=== PATIENT | male | born 1935 | race Caucasian/White ===

== ENCOUNTER 2016-09-16 08:14 | Emergency (ER) | payer OTHER, MEDICARE ==
[~2016-09-16] VITALS: Ht 177.8 cm; Wt 99.8 kg
[2016-09-16] MEDS ORDERED: ATENOLOL50 M1 PO (08:44)
[2016-09-16] MEDS ORDERED: OMEPRAZOLE40 M1 PO (08:44)
[2016-09-16] MEDS ORDERED: ATORVASTATIN CA20 M1 PO (08:44)
--- NOTE | 2016-09-16 09:13 | ED GI/GU/ABDOMINAL COMPLAINT ---
History of Present Illness General Chief Complaint: Male Genitourinary Problems Stated Complaint: BLOOD IN URINE Source: patient, old records Exam Limitations: no limitations Vital Signs & Intake/Output Vital Signs & Intake/Output Vital Signs Date Time Temp Pulse Resp B/P Pulse O2 O2 Flow FiO2 Ox Delivery Rate 09/16 0819 97.1 88 20 149/89 97 Allergies Coded Allergies: No Known Allergies (09/16/16) Reconcile Medications Atenolol 50 MG TABLET 1 TAB PO DAILY HTN (Reported) Atorvastatin Calcium 20 MG TABLET 1 TAB PO DAILY CHOLESTEROL (Reported) Omeprazole 40 MG CAPSULE.DR 1 CAP PO DAILY GERD (Reported) Triage Note: PT C/O BLOOD IN URINE SINCE YESTERDAY. STATES AT FIRST IT WAS LIGHT BUT TODAY IT WAS ALL BLOOD. PT DENIES PAIN OR BURNING WITH URINATION Triage Nurses Notes Reviewed? yes HPI: Patient presents for evaluation of blood in the urine. Patient states that the bleeding began gradually over the past 2-3 days. Urine is getting gradually darker in color. Although patient fell 2 days ago he states the hematuria began prior. No prior episodes. Patient denies any atypical urinary frequency hesitancy or dysuria. Patient's hematuria occurs with each avoiding episode and there appears to be no pattern of the hematuria. Last bowel movement yesterday without signs of bleeding. Patient states he has had subjective fevers and night sweats for about a year. Patient denies cold symptoms, lightheadedness/ dizziness or other associated symptoms. Patient has a history of prostate CA receiving radiation treatment 3 years ago. The patient has a distant history of severe cigarette smoking. Past History Travel History Traveled to [place] past 21 day No Medical History Any Pertinent Medical History? 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 No Review of Systems Review of Systems Constitutional: Reports: no symptoms. EENTM: Reports: no symptoms. Respiratory: Reports: no symptoms. Cardiovascular: Reports: no symptoms. GI: Reports: no symptoms. Genitourinary: Reports: see HPI. Musculoskeletal: Reports: no symptoms. Skin: Reports: no symptoms. Neurological/Psychological: Reports: no symptoms. Hematologic/Endocrine: Reports: no symptoms. Immunologic/Allergic: Reports: no symptoms. All Other Systems: Reviewed and Negative Physical Exam Physical Exam Gastrointestinal: normal bowel sounds (SEE BELOW), SEE BELOW Comments: Gen.: Well-nourished, well-developed, no acute respiratory distress. Head: Normocephalic, atraumatic. Eyes: Normal inspection bilaterally Ears: Normal inspection bilaterally Nose: Normal inspection Throat/mouth : Moist mucosa Neck: Supple, full range of motion, no goiter Heart: Regular rate and rhythm, no murmurs rubs or gallops Lungs: Clear to auscultation bilaterally with normal air entry Chest: Nontender Back: Normal range of motion Abdomen: Soft, mild right sided abdominal tenderness, greatest over the right upper quadrant, nondistended, normal bowel sounds, no guarding or rebound Extremities: Normal range of motion grossly, equal radial pulses, no cyanosis clubbing or edema Neurologic: Cranial nerves grossly intact, speech is clear Skin: warm and dry Psychiatric: Calm, cooperative, no apparent delusions or hallucinations Rectal: Nontender mildly boggy prostate, reddish, heme positive stool Core Measures ACS in differential dx? No Severe Sepsis Present: No Septic Shock Present: No Progress Differential Diagnosis: UTI/pyelo, BLADDER CANCER, PROSTATE CANCER, HYPERBILIRUBINEMIA, RHABDOMYOLYSIS, gi BLEED Plan of Care: Orders Procedure Date/time Status COMPREHENSIVE METABOLIC PANEL 09/16 0920 Complete CREATINE PHOSPHOKINASE 09/16 0920 Complete Add-on Test (ER Only) 09/16 0913 Active PROTHROMBIN TIME 09/16 0913 Complete CBC WITHOUT DIFFERENTIAL 09/16 0913 Complete CULTURE,URINE 09/16 0850 Active URINALYSIS 09/16 0848 Complete Laboratory Tests 09/16/16 0932: Anion Gap 8, Estimated GFR > 60, BUN/Creatinine Ratio 12.9, Glucose 103 H, Calcium 9.3, Total Bilirubin 0.8, AST 154 H, ALT 203 H, Alkaline Phosphatase 68, Creatine Kinase 116, Total Protein 6.7, Albumin 3.7, Globulin 3.0, Albumin/ Globulin Ratio 1.2, PT 10.7, INR 1.02, CBC w Diff NO MAN DIFF REQ, RBC 5.01, MCV 95.8 H, MCH 32.8 H, RDW 13.1, MPV 9.4, Gran % 44.4, Lymphocytes % 40.9, Monocytes % 11.0 H, Eosinophils % 3.3, Basophils % 0.4, Absolute Granulocytes 1.7, Absolute Lymphocytes 1.6, Absolute Monocytes 0.4, Absolute Eosinophils 0.1, Absolute Basophils 0, PUBS MCHC 34.3 09/16/16 0913: Sodium Cancelled, Potassium Cancelled, Chloride Cancelled, Carbon Dioxide Cancelled, Anion Gap Cancelled, BUN Cancelled, Creatinine Cancelled, BUN/ Creatinine Ratio Cancelled, Glucose Cancelled, Calcium Cancelled 09/16/16 0850: Urine Color BLDY H, Urine Clarity TURBD H, Urine pH 5.0, Ur Specific [place] 1.025, Urine Protein 100 H, Urine Ketones TRACE H, Urine Nitrite POS H, Urine Bilirubin NEG@ICTO, Urine Urobilinogen 1.0, Ur Leukocyte Esterase TRACE H, Ur Microscopic SEDIMENT EXAMINED, Urine RBC PACKD H, Urine WBC 1-3 H, Urine Bacteria MANY H, Urine Hemoglobin LARGE H, Urine Glucose NEG Microbiology 09/16 0850 URINE ROUT: Urine Culture - RECD Initial ED EKG: none Departure Departure Disposition: HOME OR SELF CARE Condition: Stable Clinical Impression Primary Impression: Hematuria Secondary Impressions: Heme positive stool Referrals: PATIENT HAS NO PRIMARY CARE DR Additional Instructions: Please follow-up with your GI specialist as soon as possible because you had some red blood in the stool on testing today. Please also follow-up with your urologist: [facility] at as soon as possible to recheck your bloody urine and your prostate. Cipro as prescribed. Return if any concerns or sudden worsening. Departure Forms: Customer Survey General Discharge Information Prescriptions: Current Visit Scripts Ciprofloxacin HCl (Cipro) 1 TAB PO BID #14 TAB
[2016-09-16 09:50] LABS: ABSOLUTE BASOPHIL COUNT 0 /CUMM (0.0-0.2); ABSOLUTE EOSINOPHIL COUNT 0.1 /CUMM (0.0-0.7); ABSOLUTE GRANULOCYTE CT 1.7 /CUMM (1.4-6.5); ABSOLUTE LYMPH COUNT 1.6 /CUMM (1.2-3.4); ABSOLUTE MONOCYTE COUNT 0.4 /CUMM (0.10-0.60); BASOPHIL % 0.4 % (0.0-2.0); EOSINOPHIL % 3.3 % (0-5); GRANULOCYTE % 44.4 % (42.2-75.2); MEAN CORPUSCULAR HGB 32.8 PG (27.0-31.0); MEAN CORPUSCULAR HGB CONC 34.3 G/DL (33.0-37.0); MEAN CORPUSCULAR VOLUME 95.8 FL (80.0-94.0); MEAN PLATELET VOLUME 9.4 FL (7.4-10.4); PLATELET COUNT 128 /CUMM (130-400); RBC DISTRIBUTION WIDTH 13.1 % (11.5-14.5); RED BLOOD CELL CT 5.01 /CUMM (4.70-6.10); WHITE BLOOD CELL COUNT 3.9 /CUMM (4.8-10.8)
[2016-09-16 09:54] LABS: PT 10.7 SEC (9.4-12.5)
[2016-09-16] MEDS ORDERED: CIPRO500 M1 PO (10:36)
[2016-09-16 10:45] VITALS: BP 160/82
== END 2016-09-16 10:45 ==
LOC: ERH
PROVIDERS: Emergency Medicine
DX: R31.9 Hematuria, unspecified (principal); R19.5 Other fecal abnormalities
CPT/HCPCS: 81001; 87086